=== PATIENT | male | born 1975 | race Caucasian/White ===

== ENCOUNTER 2023-01-29 15:49 | Emergency (ER) | payer OTHER ==
[~2023-01-29] VITALS: Ht 170.2 cm; Wt 108.9 kg
[2023-01-29 16:01] VITALS: BP 146/84; PULSE 61; RESP 15; TEMP 97.8; O2SAT 96
[2023-01-29] MEDS ORDERED: ACETAMINOPHEN EXTRA STRENGTH 500 MG TAB PO ONE (17:35)
[2023-01-29] MEDS ORDERED: ACET-10509 PO (18:04)
[2023-01-29] MEDS ORDERED: BACITRACIN OINT 500 UNITS/GM PKT TP ONE (18:05)
[2023-01-29 18:23] VITALS: BP 146/84; PULSE 61; RESP 15; TEMP 97.8; O2SAT 96
== END 2023-01-29 18:24 | disposition home or self-care (01) ==
LOC: MED 15:49
DX: S01.01XA Laceration without foreign body of scalp, initial encounter (principal); Z79.899 Other long term (current) drug therapy; W20.8XXA Other cause of strike by thrown, projected or falling object, initial encounter; Y93.89 Activity, other specified; Y92.59 Other trade areas as the place of occurrence of the external cause; Y99.8 Other external cause status
CPT/HCPCS: 90471; 90715; 99283

== ENCOUNTER 2023-01-31 14:08 | Emergency (ER) | payer OTHER ==
[~2023-01-31] VITALS: Ht 172.7 cm; Wt 106.6 kg
[~2023-01-31 14:08] MED LIST: ACET-10509 PO
[2023-01-31 14:21] VITALS: BP 124/89; PULSE 73; RESP 16; TEMP 98.2; O2SAT 100
== END 2023-01-31 15:15 | disposition home or self-care (01) ==
LOC: MED 14:08
DX: S01.01XD Laceration without foreign body of scalp, subsequent encounter (principal); Z48.01 Encounter for change or removal of surgical wound dressing; Z79.899 Other long term (current) drug therapy; W22.8XXD Striking against or struck by other objects, subsequent encounter
CPT/HCPCS: 99281

== ENCOUNTER 2023-02-11 07:19 | Emergency (ER) | payer OTHER ==
[~2023-02-11] VITALS: Ht 172.7 cm; Wt 110.9 kg
[2023-02-11 07:37] VITALS: BP 153/94; PULSE 66; RESP 16; TEMP 98.1; O2SAT 96
[2023-02-11 08:12] VITALS: BP 153/94; PULSE 66; RESP 16; TEMP 98.1; O2SAT 96
== END 2023-02-11 08:12 | disposition home or self-care (01) ==
LOC: MED 07:19
DX: S01.01XD Laceration without foreign body of scalp, subsequent encounter (principal); Z48.02 Encounter for removal of sutures; Z79.899 Other long term (current) drug therapy; W20.8XXD Other cause of strike by thrown, projected or falling object, subsequent encounter
CPT/HCPCS: 99281